=== PATIENT | male | born 1955 | race African-American/Black ===

== ENCOUNTER 2016-10-05 09:30 | Observation (INO) | payer OTHER ==
[~2016-10-05] VITALS: Ht 172.7 cm; Wt 55.8 kg
[~2016-10-05 09:30] MED LIST: ADLT ASA LOW81 MG PO; AMOXICILLIN500 MG OR; AMOXICILLIN500 MG PO; ASPIRIN EC81 MG PO; AUGMENTIN500 MG OR; AUGMENTIN500TAB PO; AUGMENTIN875 MG PO; CELEXA20 M1 PO; CIPROFLOXACN500 MG PO; KEFLEX250 MG PO; NAPROSYN500 MG PO; NITROSTAT0.4 MG SL; NO; NO MEDS; ROBITUSSIN AC10 ML OR; ROBITUSSIN AC10 ML PO; TRAMADOL HCL50 MG PO; ULTRAM50 M1 OR; ULTRAM50 M1 PO; ULTRAM50 MG OR; ZITHROMAX250 MG PO; ZOFRAN ODT4 MG PO; ZOVIRAX800 MG OR
[2016-10-05 09:58] LABS: HEMATOCRIT 41.7 % (39.0-50.0); HEMOGLOBIN 13.9 g/dl (14.0-18.0); IMMATURE GRANULOCYTES 0.2 % (0.0-1.0); MEAN CELL VOLUME 101.7 fL CALC (80.0-100.0); MEAN CORPUSCULAR HGB 33.9 pG CALC (26.0-32.0); MEAN CORPUSCULAR HGB CONC 33.3 g/L CALC (32.0-36.0); NEUT# 2.2 thou/uL (1.82-7.42); RED BLOOD COUNT 4.1 mill/uL (4.70-6.10); RED CELL DISTRI WIDTH 13.5 % (11.5-15.5)
[2016-10-05 10:14] LABS: ALBUMIN 4.6 g/dL (3.2-5.0); ALKALINE PHOSPHATASE 66 u/l (38-126); AMYLASE 119 u/l (30-110); ANION GAP 14 (6-22 (CALC)); BILIRUBIN, TOTAL 0.5 mg/dL (0.0-1.4); BUN 11 mg/dL (8-23); BUN/CREATININE RATIO 11 (12-20 (CALC)); CALCIUM 9.2 mg/dL (8.4-10.2); CARBON DIOXIDE 27 mmol/l (22-30); CHLORIDE 102 mmol/l (95-108); GFR > 60 ML/MIN (>=60 (CALC)); GFR FOR AFR.AMER. > 60 ML/MIN (>=60 (CALC)); GLUCOSE 177 mg/dL (82-115); LIPASE 141 u/l (23-300); POTASSIUM 4.2 mmol/l (3.5-5.1); SGOT/AST 37 u/l (19-48); SGPT/ALT 25 u/l (11-66); SODIUM 139 mmol/l (137-146); TOTAL PROTEIN 7.9 g/dL (6.3-8.2)
[2016-10-05 10:24] LABS: D-DIMER 0.3 mg/L (0.19-0.60); INTERNATIONAL NORMALIZED RATIO 0.9 RATIO (0.7-1.3); PROTHROMBIN TIME 10.2 SECONDS (9.0-12.5)
[2016-10-05 10:26] LABS: MYOGLOBIN 27 ng/mL (0 - 121)
[2016-10-05 11:19] LABS: URINE BILIRUBIN - DIPSTICK NEGATIVE (NEGATIVE); URINE BLOOD DIPSTICK NEGATIVE (NEGATIVE); URINE CLARITY CLEAR; URINE COLOR YELLOW; URINE GLUCOSE - DIPSTICK 100 mg/dL (NEGATIVE); URINE KETONE NEGATIVE (NEGATIVE); URINE LEUK ESTERASE NEGATIVE (NEGATIVE); URINE NITRITE - DIPSTICK NEGATIVE (Negative); URINE PH 5.5 (4.5-8.0); URINE PROTEIN - DIPSTICK NEGATIVE (NEG-TRACE); URINE UROBILINOGEN - DIPSTICK 0.2 E.U./dL (0.2)
[2016-10-05 11:23] LABS: BARBITURATES NEGATIVE (NEGATIVE); COCAINE POSITIVE (NEGATIVE); METHADONE NEGATIVE (NEGATIVE); OXCYCODONE NEGATIVE (NEGATIVE); TETRAHYDROCANNABIONOL NEGATIVE (NEGATIVE); TRICYLIC ANTIDEPRESSANTS NEGATIVE (NEGATIVE)
[2016-10-05 14:43] VITALS: BP 120/85
[2016-10-05 19:54] VITALS: BP 117/78
[2016-10-06 00:03] VITALS: BP 106/77
[2016-10-06 04:40] VITALS: BP 102/72
[2016-10-06 06:21] LABS: CHOLESTEROL HDL RATIO 1.5 (<4.4 (CALC))
[2016-10-06 07:54] VITALS: BP 108/77
[2016-10-06] MEDS ORDERED: ASPIRIN ADULT L81 M2 PO (10:49)
== END 2016-10-06 12:45 | disposition home or self-care (01) | DRG 313 ==
LOC: ENPENDDIS → ED 09:30 → ED-I 13:29 → ED 13:42 → MS2 13:43
PROVIDERS: Emergency Medicine; ADMIT Internal Medicine; ATTEND Internal Medicine
DX: R07.89 Other chest pain (principal); I10 Essential (primary) hypertension; F17.210 Nicotine dependence, cigarettes, uncomplicated; F14.10 Cocaine abuse, uncomplicated; F15.90 Other stimulant use, unspecified, uncomplicated; Z59.0 Homelessness; Z91.19 Patient's noncompliance with other medical treatment and regimen
CPT/HCPCS: G0378

== ENCOUNTER 2016-10-26 11:12 | Emergency (ER) | payer OTHER ==
[~2016-10-26] VITALS: Ht 172.7 cm; Wt 50.0 kg
[~2016-10-26 11:12] MED LIST changes: +ASPIRIN ADULT L81 M2 PO
[2016-10-26] MEDS ORDERED: TOBRAMYCIN0.3 % OU (11:29)
[2016-10-26 11:42] VITALS: BP 119/84
== END 2016-10-26 11:42 | disposition home or self-care (01) | DRG 125 ==
LOC: ED 11:12
DX: H10.9 Unspecified conjunctivitis (principal); H57.13 Ocular pain, bilateral

== ENCOUNTER 2016-11-28 15:43 | Observation (INO) | payer OTHER ==
[~2016-11-28] VITALS: Ht 172.7 cm; Wt 57.2 kg
[~2016-11-28 15:43] MED LIST changes: +TOBRAMYCIN0.3 % OU
--- NOTE | 2016-11-28 15:55 | NUR ---
PATIENT TO ROOM VIA WHEELCHAIR
[2016-11-28 16:18] LABS: HEMATOCRIT 39.7 % (39.0-50.0); HEMOGLOBIN 13.4 g/dl (14.0-18.0); IMMATURE GRANULOCYTES 0.2 % (0.0-1.0); MEAN CELL VOLUME 100.5 fL CALC (80.0-100.0); MEAN CORPUSCULAR HGB 33.9 pG CALC (26.0-32.0); MEAN CORPUSCULAR HGB CONC 33.8 g/L CALC (32.0-36.0); NEUT# 3.8 thou/uL (1.82-7.42); RED BLOOD COUNT 3.95 mill/uL (4.70-6.10); RED CELL DISTRI WIDTH 14.3 % (11.5-15.5)
[2016-11-28 16:30] LABS: ALBUMIN 4.8 g/dL (3.2-5.0); ALKALINE PHOSPHATASE 66 u/l (38-126); AMYLASE 124 u/l (30-110); ANION GAP 18 (6-22 (CALC)); BILIRUBIN, TOTAL 0.2 mg/dL (0.0-1.4); BUN 11 mg/dL (8-23); BUN/CREATININE RATIO 11 (12-20 (CALC)); CALCIUM 9.4 mg/dL (8.4-10.2); CARBON DIOXIDE 22 mmol/l (22-30); CHLORIDE 105 mmol/l (95-108); GFR > 60 ML/MIN (>=60 (CALC)); GFR FOR AFR.AMER. > 60 ML/MIN (>=60 (CALC)); GLUCOSE 80 mg/dL (82-115); LIPASE 130 u/l (23-300); POTASSIUM 4.1 mmol/l (3.5-5.1); SGOT/AST 49 u/l (19-48); SGPT/ALT 43 u/l (11-66); SODIUM 142 mmol/l (137-146); TOTAL PROTEIN 7.9 g/dL (6.3-8.2)
[2016-11-28 16:42] LABS: MYOGLOBIN 38 ng/mL (0 - 121)
--- NOTE | 2016-11-28 16:49 | NUR ---
PT RESTS IN THE STRETCHER, NO COMPLAINTS AT THIS TIME. IV ESTABLISHED WITH BLOOD DRAW.
[2016-11-28 18:50] LABS: URINE BILIRUBIN - DIPSTICK NEGATIVE (NEGATIVE); URINE BLOOD DIPSTICK NEGATIVE (NEGATIVE); URINE CLARITY CLEAR; URINE COLOR YELLOW; URINE GLUCOSE - DIPSTICK NEGATIVE (NEGATIVE); URINE KETONE NEGATIVE (NEGATIVE); URINE LEUK ESTERASE NEGATIVE (NEGATIVE); URINE NITRITE - DIPSTICK NEGATIVE (Negative); URINE PH 5.5 (4.5-8.0); URINE PROTEIN - DIPSTICK NEGATIVE (NEG-TRACE); URINE SPECIFIC GRAVITY 1.015; URINE UROBILINOGEN - DIPSTICK 0.2 E.U./dL (0.2)
[2016-11-28 18:53] LABS: COCAINE POSITIVE (NEGATIVE); METHADONE NEGATIVE (NEGATIVE); TETRAHYDROCANNABIONOL NEGATIVE (NEGATIVE); TRICYLIC ANTIDEPRESSANTS NEGATIVE (NEGATIVE)
[2016-11-28 18:54] LABS: BARBITURATES NEGATIVE (NEGATIVE); OXCYCODONE NEGATIVE (NEGATIVE)
--- NOTE | 2016-11-28 19:07 | NUR ---
FLOOR CALLED FOR REPORT, UNABLE TO RECEIVE AT THIS TIME, WILL RETURN CALL.
--- NOTE | 2016-11-28 19:30 | NUR ---
REPORT CALLED TO ROCAEL RASHEED
[2016-11-28 19:35] VITALS: BP 134/87
--- NOTE | 2016-11-28 19:35 | NUR ---
PT TO RM 283 WITH RN AND TELE.
--- NOTE | 2016-11-28 19:35 | NUR ---
PT TRANSFERRED TO FLOOR VIA STRETCHER IN STABLE CONDITION ACCOMPANIED BY ARLYNRN;PT AMBULATED WITH STEADY GAIT TO BEDSIDE;VS OBTAINED;PT ORIENTED TO ROOM AND CALL LIGHT SYSTEM AND VERBALIZES UNDERSTANDING;ASSESSMENT COMPLETED;IV SITE TO RAC INFUSING WELL;TELE MONITOR IN PLACE;SKIN INTACT;PT COMPLAINS OF HEADACHE PAIN AND REQUESTS PRN PAIN MEDICATION;MD TO BE CALL FOR ORDER;PT DENIES ANY OTHER NEEDS AT THIS TIME;BED IN LOWEST POSITION WITH CALL LIGHT IN REACH;WILL CONTINUE TO MONITOR
--- NOTE | 2016-11-28 20:13 | NUR ---
NEW ORDERS RECEIVED FROM AT THIS TIME
--- NOTE | 2016-11-28 20:50 | NUR ---
PT MEDICATED WITH PRN TYLENOL FOR HEADACHE PAIN 8/10 ON THE PAIN SCALE;PT DENIES ANY OTHER NEEDS AT THIS TIME;BED IN LOWEST POSITION WITH CALL LIGHT IN REACH;WILL CONTINUE TO MONITOR
[2016-11-28 23:42] VITALS: BP 142/58
--- NOTE | 2016-11-28 23:47 | NUR ---
PT APPEARS TO BE SLEEPING IN SEMI FOWLERS POSITION;NO S/S OF DISTRESS NOTED;RESPIRATIONS EVEN AND UNLABORED ON RA;TELE MONITOR IN PLACE;IV FLUIDS INFUSING WELL;BED IN LOWEST POSITION WITH CALL LIGHT IN REACH;WILL CONTINUE TO MONITOR
[2016-11-29 03:28] VITALS: BP 111/74
--- NOTE | 2016-11-29 05:38 | NUR ---
PT RESTING IN SEMI FOWLERS POSITION;PT DENIES ANY PAIN OR NAUSEA;RESPIRATIONS EVEN AND UNLABORED ON RA;TELE MONITOR IN PLACE;PT DENIES ANY NEEDS AT THIS TIME;CALL LIGHT WITHIN REACH;WILL CONTINUE TO MONITOR
[2016-11-29 06:24] LABS: HEMATOCRIT 39.9 % (39.0-50.0); HEMOGLOBIN 13.3 g/dl (14.0-18.0); IMMATURE GRANULOCYTES 0.8 % (0.0-1.0); MEAN CELL VOLUME 101.3 fL CALC (80.0-100.0); MEAN CORPUSCULAR HGB 33.8 pG CALC (26.0-32.0); MEAN CORPUSCULAR HGB CONC 33.3 g/L CALC (32.0-36.0); NEUT# 2.07 thou/uL (1.82-7.42); RED BLOOD COUNT 3.94 mill/uL (4.70-6.10); RED CELL DISTRI WIDTH 14.3 % (11.5-15.5)
[2016-11-29 06:42] LABS: ANION GAP 12 (6-22 (CALC)); BUN 8 mg/dL (8-23); BUN/CREATININE RATIO 9 (12-20 (CALC)); CALCIUM 9.2 mg/dL (8.4-10.2); CARBON DIOXIDE 26 mmol/l (22-30); CHLORIDE 106 mmol/l (95-108); GFR > 60 ML/MIN (>=60 (CALC)); GFR FOR AFR.AMER. > 60 ML/MIN (>=60 (CALC)); GLUCOSE 101 mg/dL (82-115); POTASSIUM 4.4 mmol/l (3.5-5.1); SODIUM 140 mmol/l (137-146)
[2016-11-29 06:51] LABS: CHOLESTEROL HDL RATIO 1.4 (<4.4 (CALC))
--- NOTE | 2016-11-29 07:00 | NUR ---
SHIFT CHANGE REPORT FROM NANCY COTE AWAKE, ALERT AND ORIENTED LAYING IN BED, APPEARANCE DISHEVELLED AND DIRTY WITH DIRT SEDIMENTS ALL OVER BED, C/O PAIN TO LEFT SIDE, CALL MARI IN REACH, WILL CONTINUE TO MONITOR.
[2016-11-29 07:33] VITALS: BP 109/75
[2016-11-29 09:15] VITALS: BP 109/75
[2016-11-29] MEDS ORDERED: ASPIRIN ADULT L81 M2 PO (09:55)
[2016-11-29] MEDS ORDERED: PEPCID20 MG PO (09:55)
[2016-11-29] MEDS ORDERED: IBUPROFEN600 MG PO (09:55)
--- NOTE | 2016-11-29 11:12 | NUR ---
Discharge instructions given. Patient verbalizes understanding of same. Discharged in good condition via Ambulatory to Home with *Other. All belongings sent with pt.
== END 2016-11-29 11:05 | disposition home or self-care (01) | DRG 313 ==
LOC: ENPENDDIS → ED 15:43 → ED-I 16:06 → ED 18:00 → MS2 18:01
PROVIDERS: Emergency Medicine; ADMIT Internal Medicine; ATTEND Internal Medicine
DX: R07.89 Other chest pain (principal); F14.10 Cocaine abuse, uncomplicated; F17.210 Nicotine dependence, cigarettes, uncomplicated; Z91.14 Patient's other noncompliance with medication regimen; Z59.0 Homelessness
CPT/HCPCS: G0378

== ENCOUNTER 2017-01-11 13:23 | Emergency (ER) | payer OTHER ==
[~2017-01-11] VITALS: Ht 172.7 cm; Wt 57.4 kg
[~2017-01-11 13:23] MED LIST changes: +IBUPROFEN600 MG PO; +PEPCID20 MG PO
[2017-01-11 14:37] LABS: URINE BILIRUBIN - DIPSTICK NEGATIVE (NEGATIVE); URINE BLOOD DIPSTICK NEGATIVE (NEGATIVE); URINE CLARITY CLEAR; URINE COLOR YELLOW; URINE GLUCOSE - DIPSTICK NEGATIVE (NEGATIVE); URINE KETONE NEGATIVE (NEGATIVE); URINE LEUK ESTERASE NEGATIVE (NEGATIVE); URINE NITRITE - DIPSTICK NEGATIVE (Negative); URINE PH 5.5 (4.5-8.0); URINE PROTEIN - DIPSTICK NEGATIVE (NEG-TRACE); URINE UROBILINOGEN - DIPSTICK 0.2 E.U./dL (0.2)
[2017-01-11 14:43] LABS: HEMATOCRIT 39.9 % (39.0-50.0); HEMOGLOBIN 13.6 g/dl (14.0-18.0); IMMATURE GRANULOCYTES 0.5 % (0.0-1.0); MEAN CORPUSCULAR HGB 34.1 pG CALC (26.0-32.0); MEAN CORPUSCULAR HGB CONC 34.1 g/L CALC (32.0-36.0); NEUT# 1.67 thou/uL (1.82-7.42); RED BLOOD COUNT 3.99 mill/uL (4.70-6.10); RED CELL DISTRI WIDTH 13.4 % (11.5-15.5)
[2017-01-11 14:58] LABS: ALBUMIN 4.5 g/dL (3.2-5.0); ALKALINE PHOSPHATASE 59 u/l (38-126); AMYLASE 141 u/l (30-110); ANION GAP 19 (6-22 (CALC)); BILIRUBIN, TOTAL 0.3 mg/dL (0.0-1.4); BUN 15 mg/dL (8-23); BUN/CREATININE RATIO 13 (12-20 (CALC)); CALCIUM 9.3 mg/dL (8.4-10.2); CARBON DIOXIDE 20 mmol/l (22-30); CHLORIDE 105 mmol/l (95-108); CREATININE 1.2 mg/dL (0.7-1.3); GFR > 60 ML/MIN (>=60 (CALC)); GFR FOR AFR.AMER. > 60 ML/MIN (>=60 (CALC)); GLUCOSE 81 mg/dL (82-115); LIPASE 147 u/l (23-300); POTASSIUM 4.2 mmol/l (3.5-5.1); SGOT/AST 45 u/l (19-48); SGPT/ALT 51 u/l (11-66); SODIUM 140 mmol/l (137-146); TOTAL PROTEIN 7.5 g/dL (6.3-8.2)
[2017-01-11 15:06] LABS: MYOGLOBIN 40 ng/mL (0 - 121)
[2017-01-11] MEDS ORDERED: COLACE100 MG PO (15:49)
[2017-01-11] MEDS ORDERED: CIPROFLOXACN750 MG PO (15:49)
[2017-01-11 16:16] VITALS: BP 100/73
== END 2017-01-11 16:30 | disposition home or self-care (01) | DRG 392 ==
LOC: ED 13:23
PROVIDERS: Emergency Medicine
DX: R10.32 Left lower quadrant pain (principal); K59.00 Constipation, unspecified; R10.12 Left upper quadrant pain; R10.2 Pelvic and perineal pain

== ENCOUNTER 2017-03-16 11:01 | Emergency (ER) | payer OTHER ==
[~2017-03-16] VITALS: Ht 172.7 cm; Wt 80.0 kg
[~2017-03-16 11:01] MED LIST changes: +CIPROFLOXACN750 MG PO; +COLACE100 MG PO
[2017-03-16] MEDS ORDERED: CEPHALEXIN500 MG PO (12:40)
[2017-03-16] MEDS ORDERED: ROBITUSSIN AC10 ML PO (12:40)
[2017-03-16 12:48] VITALS: BP 133/88
== END 2017-03-16 12:56 | disposition home or self-care (01) | DRG 153 ==
LOC: ED 11:01
DX: J06.9 Acute upper respiratory infection, unspecified (principal); F17.210 Nicotine dependence, cigarettes, uncomplicated; R05 Cough; J02.9 Acute pharyngitis, unspecified; R07.9 Chest pain, unspecified

== ENCOUNTER 2017-06-12 08:40 | Emergency (ER) | payer OTHER ==
[~2017-06-12] VITALS: Ht 172.7 cm; Wt 50.0 kg
[~2017-06-12 08:40] MED LIST changes: +CEPHALEXIN500 MG PO
[2017-06-12 09:56] LABS: HEMATOCRIT 41.7 % (39.0-50.0); HEMOGLOBIN 14.4 g/dl (14.0-18.0); IMMATURE GRANULOCYTES 0.2 % (0.0-1.0); MEAN CELL VOLUME 99.5 fL CALC (80.0-100.0); MEAN CORPUSCULAR HGB 34.4 pG CALC (26.0-32.0); MEAN CORPUSCULAR HGB CONC 34.5 g/L CALC (32.0-36.0); NEUT# 2.38 thou/uL (1.82-7.42); RED BLOOD COUNT 4.19 mill/uL (4.70-6.10); RED CELL DISTRI WIDTH 13.2 % (11.5-15.5)
[2017-06-12 10:05] LABS: LIPASE 267 u/l (23-300)
[2017-06-12 10:36] LABS: INFLUENZA A NONE DETECTED (NONE DETECT); INFLUENZA B NONE DETECTED (NONE DETECT)
[2017-06-12 10:42] LABS: ALBUMIN 4.4 g/dL (3.2-5.0); ALKALINE PHOSPHATASE 71 u/l (38-126); ANION GAP 15 (6-22 (CALC)); BILIRUBIN, TOTAL 1.1 mg/dL (0.0-1.4); BUN 8 mg/dL (8-23); BUN/CREATININE RATIO 8 (12-20 (CALC)); CALCIUM 9.3 mg/dL (8.4-10.2); CARBON DIOXIDE 24 mmol/l (22-30); CHLORIDE 107 mmol/l (95-108); GFR > 60 ML/MIN (>=60 (CALC)); GFR FOR AFR.AMER. > 60 ML/MIN (>=60 (CALC)); GLUCOSE 91 mg/dL (82-115); POTASSIUM 5.1 mmol/l (3.5-5.1); SGOT/AST 52 u/l (19-48); SGPT/ALT 17 u/l (11-66); SODIUM 140 mmol/l (137-146); TOTAL PROTEIN 7.6 g/dL (6.3-8.2)
[2017-06-12] MEDS ORDERED: PROVENTIL HFA IN (11:28)
[2017-06-12] MEDS ORDERED: ZPAK PO (11:28)
[2017-06-12 11:59] VITALS: BP 116/82
== END 2017-06-12 12:06 | disposition home or self-care (01) | DRG 203 ==
LOC: ED 08:40
PROVIDERS: Emergency Medicine
DX: J40 Bronchitis, not specified as acute or chronic (principal); M79.1 Myalgia; R05 Cough; Z72.0 Tobacco use

== ENCOUNTER 2017-08-28 06:04 | Day surgery (SDC) | payer OTHER ==
[~2017-08-28] VITALS: Ht 172.7 cm; Wt 57.2 kg
[~2017-08-28 06:04] MED LIST changes: +OMEPRAZOLE20 M2 PO; +PROVENTIL HFA IN; +ZPAK PO
[2017-08-28 08:31] VITALS: BP 105/72
== END 2017-08-28 08:42 | disposition home or self-care (01) | DRG 951 ==
LOC: ENDO 06:04
PROVIDERS: ATTEND Surgery
PROC: 0DJD8ZZ Inspection of Lower Intestinal Tract, Via Natural or Artificial Opening Endoscopic (ICD-10-PCS; principal; 2017-08-28)
DX: Z12.11 Encounter for screening for malignant neoplasm of colon (principal); K64.8 Other hemorrhoids

== ENCOUNTER 2017-09-20 19:04 | Emergency (ER) | payer OTHER ==
[~2017-09-20] VITALS: Ht 172.7 cm; Wt 57.6 kg
[2017-09-20 19:44] LABS: HEMOGLOBIN 13.6 g/dl (14.0-18.0); MEAN CORPUSCULAR HGB 33.8 pG CALC (26.0-32.0); MEAN CORPUSCULAR HGB CONC 33.2 g/L CALC (32.0-36.0); NEUT# 2.88 thou/uL (1.82-7.42); RED BLOOD COUNT 4.02 mill/uL (4.70-6.10); RED CELL DISTRI WIDTH 13.4 % (11.5-15.5)
[2017-09-20 19:47] LABS: URINE BILIRUBIN - DIPSTICK NEGATIVE (NEGATIVE); URINE BLOOD DIPSTICK NEGATIVE (NEGATIVE); URINE COLOR YELLOW; URINE GLUCOSE - DIPSTICK NEGATIVE (NEGATIVE); URINE KETONE NEGATIVE (NEGATIVE); URINE LEUK ESTERASE NEGATIVE (NEGATIVE); URINE NITRITE - DIPSTICK NEGATIVE (Negative); URINE PROTEIN - DIPSTICK NEGATIVE (NEG-TRACE); URINE SPECIFIC GRAVITY 1.025; URINE UROBILINOGEN - DIPSTICK 0.2 E.U./dL (0.2)
[2017-09-20 19:50] LABS: URINE CLARITY CLEAR
[2017-09-20 20:02] LABS: ALBUMIN 4.4 g/dL (3.2-5.0); ALKALINE PHOSPHATASE 72 u/l (38-126); ANION GAP 21 (6-22 (CALC)); BILIRUBIN, TOTAL 0.2 mg/dL (0.0-1.4); BUN 15 mg/dL (8-23); BUN/CREATININE RATIO 15 (12-20 (CALC)); CARBON DIOXIDE 19 mmol/l (22-30); CHLORIDE 104 mmol/l (95-108); GFR > 60 ML/MIN (>=60 (CALC)); GFR FOR AFR.AMER. > 60 ML/MIN (>=60 (CALC)); POTASSIUM 4.5 mmol/l (3.5-5.1); SGOT/AST 35 u/l (19-48); SGPT/ALT 29 u/l (11-66); SODIUM 140 mmol/l (137-146); TOTAL PROTEIN 7.5 g/dL (6.3-8.2)
[2017-09-20] MEDS ORDERED: TORADOL PO (20:33)
[2017-09-20] MEDS ORDERED: BACTRIM DS1 TAB PO (20:33)
[2017-09-20 21:21] VITALS: BP 136/98
== END 2017-09-20 21:21 | disposition home or self-care (01) | DRG 563 ==
LOC: ED 19:04
PROVIDERS: Emergency Medicine
DX: S39.011A Strain of muscle, fascia and tendon of abdomen, initial encounter (principal); F17.210 Nicotine dependence, cigarettes, uncomplicated; Z59.0 Homelessness; X58.XXXA Exposure to other specified factors, initial encounter

== ENCOUNTER 2017-10-15 21:03 | Observation (INO) | payer OTHER ==
[~2017-10-15] VITALS: Ht 172.7 cm; Wt 55.0 kg
[~2017-10-15 21:03] MED LIST changes: +BACTRIM DS1 TAB PO; +TORADOL PO
--- NOTE | 2017-10-15 21:31 | NUR ---
PT TO ROOM AND DR AT BEDSIDE
--- NOTE | 2017-10-15 21:45 | NUR ---
PT REPORTS SORE THROAT, VOMITING, AND ABD PAIN SINCE YESTERDAY. HAS HX OF INGUINAL HERNIA. PT IS A POOR HISTORIAN AND SAYS DIFFERENT THINGS THEN DENIES SYMPTOMS WHEN ASKED AGAIN.
--- NOTE | 2017-10-15 22:09 | NUR ---
PT MEDICATED WITH ASA 324 MG PO AND NTG PASTE PER EDP ORDER.
--- NOTE | 2017-10-15 22:11 | NUR ---
IV ATTEMPTS X 2 BY TRANSMISSION SPECIALIST. EDITH AND SANJU METCALF INFORMED. IN ROOM TO ATTEMPT IV ACCESS.
--- NOTE | 2017-10-15 22:15 | NUR ---
REPROT GIVEN TO SANJU METCALF/
[2017-10-15 22:31] LABS: URINE BILIRUBIN - DIPSTICK NEGATIVE (NEGATIVE); URINE BLOOD DIPSTICK NEGATIVE (NEGATIVE); URINE COLOR YELLOW; URINE GLUCOSE - DIPSTICK NEGATIVE (NEGATIVE); URINE KETONE NEGATIVE (NEGATIVE); URINE LEUK ESTERASE NEGATIVE (NEGATIVE); URINE NITRITE - DIPSTICK NEGATIVE (Negative); URINE PH 6.5 (4.5-8.0); URINE PROTEIN - DIPSTICK NEGATIVE (NEG-TRACE); URINE SPECIFIC GRAVITY <=1.005; URINE UROBILINOGEN - DIPSTICK 0.2 E.U./dL (0.2)
[2017-10-15 22:35] LABS: URINE CLARITY CLEAR
[2017-10-15 22:36] LABS: BARBITURATES NEGATIVE (NEGATIVE); COCAINE POSITIVE (NEGATIVE); METHADONE NEGATIVE (NEGATIVE); OXCYCODONE NEGATIVE (NEGATIVE); TETRAHYDROCANNABIONOL NEGATIVE (NEGATIVE); TRICYLIC ANTIDEPRESSANTS NEGATIVE (NEGATIVE)
[2017-10-15 22:40] LABS: INFLUENZA A NONE DETECTED (NONE DETECT)
[2017-10-15 22:41] LABS: INFLUENZA B NONE DETECTED (NONE DETECT)
[2017-10-15 22:44] LABS: HEMATOCRIT 41.6 % (39.0-50.0); IMMATURE GRANULOCYTES 0.2 % (0.0-1.0); MEAN CORPUSCULAR HGB CONC 33.7 g/L CALC (32.0-36.0); NEUT# 2.45 thou/uL (1.82-7.42); RED BLOOD COUNT 4.12 mill/uL (4.70-6.10); RED CELL DISTRI WIDTH 13.3 % (11.5-15.5)
--- NOTE | 2017-10-15 23:01 | NUR ---
RESTING QUIETLY. AWAITING DISPOSITION.
[2017-10-15 23:10] LABS: ACT PARTIAL THROMBO TIME 27.8 SECONDS (20.0-32.5)
[2017-10-15 23:15] LABS: ALBUMIN 4.3 g/dL (3.2-5.0); ALKALINE PHOSPHATASE 68 u/l (38-126); AMYLASE 106 u/l (30-110); ANION GAP 21 (6-22 (CALC)); BILIRUBIN, TOTAL 0.3 mg/dL (0.0-1.4); BUN 10 mg/dL (8-23); BUN/CREATININE RATIO 12 (12-20 (CALC)); CARBON DIOXIDE 22 mmol/l (22-30); CHLORIDE 100 mmol/l (95-108); CREATININE 0.9 mg/dL (0.7-1.3); ETHYL ALCOHOL 152 mg/dl (0-30); GFR > 60 ML/MIN (>=60 (CALC)); GFR FOR AFR.AMER. > 60 ML/MIN (>=60 (CALC)); LIPASE 126 u/l (23-300); POTASSIUM 4.3 mmol/l (3.5-5.1); SGOT/AST 38 u/l (19-48); SGPT/ALT 33 u/l (11-66); SODIUM 140 mmol/l (137-146); TOTAL PROTEIN 7.4 g/dL (6.3-8.2)
[2017-10-15 23:26] LABS: MYOGLOBIN 46 ng/mL (0 - 121)
--- NOTE | 2017-10-16 00:54 | NUR ---
RESTING QUIETLY, NO PROBLEMS NOTED.
--- NOTE | 2017-10-16 01:47 | NUR ---
AWAITING BED ASSIGNMENT.
--- NOTE | 2017-10-16 01:58 | NUR ---
Admission Note Report Given to: SANJU HASTINGS Transported by: X Wheelchair Stretcher Transported with: X Nurse Transporter X Patent IV O2 X Alarm Mechanism Adjuster
[2017-10-16 02:30] VITALS: BP 105/68
--- NOTE | 2017-10-16 02:30 | NUR ---
PT ARRIVED TO THE FLOOR VIA WHEELCHAIER WITH ER NURSE. PT AMBULATED TO SCALE, THEN TO BED. VITAL SIGNS OBTAINED BY CONSUMER ADVOCATE. PT ORIENTED TO ROOM AND CALL LIGHT SYSTEM. RESP EVEN AND UNLABORED ON ROOM AIR. LUNGS CLEAR BILAT. TELE ON. ABD SOFT; ACTIVE BOWEL SOUNDS. PT REPORTS LAST BM WAS YESTERDAY. PEDAL PULSES PALPATED BILAT. IV RAC PATENT; FLUSHED WITHOUT DIFFICULTY. PT DENIES PAIN. SAFETY PRECAUTIONS REINFORCED. PT ASKED ADMIT QUESTIONS; PT IS A POOR HISTORIAN. PT DENIES ALL PMH OTHER THAN SEIZURES. PT REPORTS " I HAD THEM WHEN I WAS A KID." WHEN PT WAS ASKED IF HE HAS HAD A SEIZURE SINCE THEN, PT HAD STATED "I HAD ONE 5 YEARS AGO". SEIZURE PRECAUTIONS IN PLACE. FREQUENT ROUNDS MADE. CALL LIGHT WITHIN REACH.
--- NOTE | 2017-10-16 04:11 | NUR ---
PT RESTING IN BED. RESP EVEN AND UNLABORED. PT DENIES ANY OTHER NEEDS AT THIS TIME. TELE ON. CALL LIGHT WITHIN REACH.
[2017-10-16 04:30] VITALS: BP 100/70
--- NOTE | 2017-10-16 07:00 | NUR ---
RECEIVED BEDSIDE REPORT FROM SHARMILA RASHEED. RESTING IN SUPINE POSITION WITH EYES CLOSED, AWAKENS EASILY. RESPS EVEN AND UNLABORED ON ROOM AIR, TELE MONITOR IN PLACE. DENIES PAIN OR DISCOMFORT. PLAN OF CARE DISCUSSED. SAFETY PRECAUTIONS REINFORCED. SEIZURE PRECAUTIONS IN PLACE. BED IN LOWEST POSITION WITH WHEELS LOCKED. CALL LIGHT WITHIN REACH. ENCOURAGED PT TO CALL FOR ANY NEEDS.
[2017-10-16 07:41] VITALS: BP 114/75
[2017-10-16 11:22] VITALS: BP 117/74
--- NOTE | 2017-10-16 11:40 | NUR ---
IN HIGH FOWLERS, RESPS EVEN AND UNLABORED ON ROOM AIR, TELE MONTIOR IN PLACE. MEDICATED WITH GI COCKTAIL FOR C/O EPIGASTRIC DISCOMFORT. CALL LIGHT WITHIN REACH. WILL CONTINUE TO MONITOR.
[2017-10-16 12:04] LABS: CHOLESTEROL HDL RATIO 1.6 (<4.4 (CALC))
--- NOTE | 2017-10-16 12:20 | NUR ---
DR TAFOYA AT BEDSIDE, NEW ORDERS RECEIVED.
[2017-10-16] MEDS ORDERED: ASPIRIN ADULT L81 M2 PO (12:55)
[2017-10-16] MEDS ORDERED: AMOXICILLIN500 M2 PO (12:55)
--- NOTE | 2017-10-16 13:52 | NUR ---
IV site discontinued, cath intact. No edema , no redness, voices no discomfort.
--- NOTE | 2017-10-16 14:27 | NUR ---
Discharge instructions given. Patient verbalizes understanding of same. Discharged in stable condition via Wheelchair to Home with friend. All belongings sent with pt.
== END 2017-10-16 15:05 | disposition home or self-care (01) | DRG 313 ==
LOC: ED 21:03 → ED-I 10-16 01:29 → ED 10-16 01:49 → MS2 10-16 01:50
PROVIDERS: Emergency Medicine; Nurse Practitioner Family; ADMIT Internal Medicine; ATTEND Internal Medicine
DX: R07.89 Other chest pain (principal); J02.0 Streptococcal pharyngitis; F10.129 Alcohol abuse with intoxication, unspecified; F14.10 Cocaine abuse, uncomplicated; F17.210 Nicotine dependence, cigarettes, uncomplicated; Y90.6 Blood alcohol level of 120-199 mg/100 ml; F12.90 Cannabis use, unspecified, uncomplicated; Z59.0 Homelessness
CPT/HCPCS: G0378; S0164

== ENCOUNTER 2017-11-13 13:33 | Emergency (ER) | payer OTHER ==
[~2017-11-13] VITALS: Ht 172.7 cm; Wt 55.0 kg
[~2017-11-13 13:33] MED LIST changes: +AMOXICILLIN500 M2 PO
[2017-11-13 14:33] LABS: HEMATOCRIT 37.8 % (39.0-50.0); HEMOGLOBIN 12.8 g/dl (14.0-18.0); IMMATURE GRANULOCYTES 0.2 % (0.0-1.0); MEAN CELL VOLUME 102.4 fL CALC (80.0-100.0); MEAN CORPUSCULAR HGB 34.7 pG CALC (26.0-32.0); MEAN CORPUSCULAR HGB CONC 33.9 g/L CALC (32.0-36.0); NEUT# 2.67 thou/uL (1.82-7.42); RED BLOOD COUNT 3.69 mill/uL (4.70-6.10); RED CELL DISTRI WIDTH 14.4 % (11.5-15.5)
[2017-11-13 14:44] LABS: ALBUMIN 4.3 g/dL (3.2-5.0); ALKALINE PHOSPHATASE 72 u/l (38-126); ANION GAP 15 (6-22 (CALC)); BILIRUBIN, TOTAL 0.3 mg/dL (0.0-1.4); BUN 12 mg/dL (8-23); BUN/CREATININE RATIO 12 (12-20 (CALC)); CARBON DIOXIDE 23 mmol/l (22-30); CHLORIDE 103 mmol/l (95-108); GFR > 60 ML/MIN (>=60 (CALC)); GFR FOR AFR.AMER. > 60 ML/MIN (>=60 (CALC)); LIPASE 138 u/l (23-300); SGOT/AST 40 u/l (19-48); SGPT/ALT 40 u/l (11-66); SODIUM 137 mmol/l (137-146); TOTAL PROTEIN 7.3 g/dL (6.3-8.2)
[2017-11-13 15:25] LABS: BARBITURATES NEGATIVE (NEGATIVE); COCAINE POSITIVE (NEGATIVE); METHADONE NEGATIVE (NEGATIVE); OXCYCODONE NEGATIVE (NEGATIVE); TETRAHYDROCANNABIONOL NEGATIVE (NEGATIVE); TRICYLIC ANTIDEPRESSANTS NEGATIVE (NEGATIVE)
[2017-11-13 16:24] VITALS: BP 148/97
== END 2017-11-13 16:27 | disposition home or self-care (01) | DRG 313 ==
LOC: ED 13:33
PROVIDERS: Emergency Medicine
DX: R07.89 Other chest pain (principal); R06.02 Shortness of breath; F14.10 Cocaine abuse, uncomplicated; F17.210 Nicotine dependence, cigarettes, uncomplicated

== ENCOUNTER 2018-03-12 19:08 | Emergency (ER) | payer OTHER ==
[~2018-03-12] VITALS: Ht 172.7 cm; Wt 54.5 kg
[2018-03-12 19:49] LABS: IMMATURE GRANULOCYTES 0.2 % (0.0-5.0); MEAN CELL VOLUME 99.5 fL CALC (80.0-100.0); MEAN CORPUSCULAR HGB CONC 34.2 g/L CALC (32.0-36.0); NEUT# 1.99 thou/uL (1.82-7.42); RED BLOOD COUNT 3.82 mill/uL (4.70-6.10); RED CELL DISTRI WIDTH 13.5 % (11.5-15.5); URINE BILIRUBIN - DIPSTICK NEGATIVE (NEGATIVE); URINE BLOOD DIPSTICK NEGATIVE (NEGATIVE); URINE COLOR YELLOW; URINE GLUCOSE - DIPSTICK NEGATIVE (NEGATIVE); URINE KETONE NEGATIVE (NEGATIVE); URINE LEUK ESTERASE NEGATIVE (NEGATIVE); URINE NITRITE - DIPSTICK NEGATIVE (Negative); URINE PH 5.5 (4.5-8.0); URINE PROTEIN - DIPSTICK NEGATIVE (NEG-TRACE); URINE UROBILINOGEN - DIPSTICK 0.2 E.U./dL (0.2)
[2018-03-12 19:52] LABS: URINE CLARITY CLEAR
[2018-03-12 20:06] LABS: ALBUMIN 4.2 g/dL (3.2-5.0); ALKALINE PHOSPHATASE 56 u/l (38-126); ANION GAP 18 (6-22 (CALC)); BILIRUBIN, TOTAL 0.3 mg/dL (0.0-1.4); BUN 18 mg/dL (8-23); BUN/CREATININE RATIO 16 (12-20 (CALC)); CARBON DIOXIDE 20 mmol/l (22-30); CHLORIDE 102 mmol/l (95-108); CREATININE 1.1 mg/dL (0.7-1.3); GFR > 60 ML/MIN (>=60 (CALC)); GFR FOR AFR.AMER. > 60 ML/MIN (>=60 (CALC)); POTASSIUM 4.4 mmol/l (3.5-5.1); SGOT/AST 62 u/l (19-48); SODIUM 136 mmol/l (137-146); TOTAL PROTEIN 7.1 g/dL (6.3-8.2)
[2018-03-12 20:07] LABS: INFLUENZA A NONE DETECTED (NONE DETECT); INFLUENZA B NONE DETECTED (NONE DETECT)
[2018-03-12 20:18] LABS: MYOGLOBIN 42 ng/mL (0 - 121)
[2018-03-12 20:49] LABS: BARBITURATES NEGATIVE (NEGATIVE); COCAINE POSITIVE (NEGATIVE); METHADONE NEGATIVE (NEGATIVE); TETRAHYDROCANNABIONOL NEGATIVE (NEGATIVE); TRICYLIC ANTIDEPRESSANTS NEGATIVE (NEGATIVE)
[2018-03-12 20:50] LABS: OXCYCODONE NEGATIVE (NEGATIVE)
[2018-03-12] MEDS ORDERED: NAPROSYN500 MG PO (20:56)
[2018-03-12 21:27] VITALS: BP 144/97
== END 2018-03-12 21:25 | disposition home or self-care (01) ==
LOC: ED 19:08
PROVIDERS: Emergency Medicine
DX: F10.10 Alcohol abuse, uncomplicated (principal); F19.10 Other psychoactive substance abuse, uncomplicated; R52 Pain, unspecified; R07.9 Chest pain, unspecified; R05 Cough; J02.9 Acute pharyngitis, unspecified; G40.909 Epilepsy, unspecified, not intractable, without status epilepticus

== ENCOUNTER 2018-07-04 15:28 | Emergency (ER) | payer OTHER ==
[~2018-07-04] VITALS: Ht 172.7 cm; Wt 56.0 kg
[2018-07-04 17:10] LABS: URINE BILIRUBIN - DIPSTICK NEGATIVE (NEGATIVE); URINE BLOOD DIPSTICK NEGATIVE (NEGATIVE); URINE COLOR YELLOW; URINE GLUCOSE - DIPSTICK NEGATIVE (NEGATIVE); URINE KETONE NEGATIVE (NEGATIVE); URINE PROTEIN - DIPSTICK NEGATIVE (NEG-TRACE); URINE UROBILINOGEN - DIPSTICK 0.2 E.U./dL (0.2)
[2018-07-04 17:11] LABS: URINE LEUK ESTERASE SMALL (NEGATIVE); URINE NITRITE - DIPSTICK POSITIVE (Negative)
[2018-07-04 17:15] LABS: HEMATOCRIT 39.8 % (39.0-50.0); HEMOGLOBIN 13.1 g/dl (14.0-18.0); IMMATURE GRANULOCYTES 0.3 % (0.0-5.0); MEAN CELL VOLUME 103.1 fL CALC (80.0-100.0); MEAN CORPUSCULAR HGB 33.9 pG CALC (26.0-32.0); MEAN CORPUSCULAR HGB CONC 32.9 g/L CALC (32.0-36.0); NEUT# 6.89 thou/uL (1.82-7.42); RED BLOOD COUNT 3.86 mill/uL (4.70-6.10); RED CELL DISTRI WIDTH 13.5 % (11.5-15.5)
[2018-07-04 17:21] LABS: URINE BACTERIA MANY hpf; URINE RBC 0-2 RBC/hpf (0-5); URINE SQUAMOUS EPITHELIAL CELL RARE EPI/hpf (0-FEW); URINE WBC 20-50 WBC/hpf (0-5)
[2018-07-04 17:38] LABS: ALBUMIN 4.5 g/dL (3.2-5.0); ALKALINE PHOSPHATASE 74 u/l (38-126); ANION GAP 15 (6-22 (CALC)); BILIRUBIN, TOTAL 0.4 mg/dL (0.0-1.4); BUN 12 mg/dL (8-23); BUN/CREATININE RATIO 13 (12-20 (CALC)); CARBON DIOXIDE 25 mmol/l (22-30); CHLORIDE 104 mmol/l (95-108); CREATININE 0.9 mg/dL (0.7-1.3); GFR > 60 ML/MIN (>=60 (CALC)); GFR FOR AFR.AMER. > 60 ML/MIN (>=60 (CALC)); POTASSIUM 4.9 mmol/l (3.5-5.1); SGOT/AST 36 u/l (19-48); SODIUM 139 mmol/l (137-146); TOTAL PROTEIN 7.2 g/dL (6.3-8.2)
[2018-07-04] MEDS ORDERED: MAGNESIUM296 ML/BTL PO (18:03)
[2018-07-04] MEDS ORDERED: TAMSULOSIN0.4 MG PO (18:03)
[2018-07-04] MEDS ORDERED: BACTRIM DS1 TAB PO (18:03)
[2018-07-04] MEDS ORDERED: MIRALAX3350 N1 PO (18:03)
[2018-07-04 18:09] VITALS: BP 147/80
== END 2018-07-04 18:22 | disposition home or self-care (01) ==
LOC: ED 15:28
PROVIDERS: Family Medicine
DX: N40.1 Benign prostatic hyperplasia with lower urinary tract symptoms (principal); R33.8 Other retention of urine; N39.0 Urinary tract infection, site not specified; B96.89 Other specified bacterial agents as the cause of diseases classified elsewhere; K59.00 Constipation, unspecified; F17.200 Nicotine dependence, unspecified, uncomplicated; F03.90 Unspecified dementia, unspecified severity, without behavioral disturbance, psychotic disturbance, mood disturbance, and anxiety; R10.84 Generalized abdominal pain

== ENCOUNTER 2019-01-28 10:54 | Observation (INO) | payer OTHER ==
[~2019-01-28] VITALS: Ht 172.7 cm; Wt 54.9 kg
[~2019-01-28 10:54] MED LIST changes: +MAGNESIUM296 ML/BTL PO; +MIRALAX3350 N1 PO; +TAMSULOSIN0.4 MG PO
[2019-01-28 11:38] LABS: HEMATOCRIT 41.2 % (39.0-50.0); HEMOGLOBIN 13.9 g/dl (14.0-18.0); IMMATURE GRANULOCYTES 0.3 % (0.0-5.0); MEAN CELL VOLUME 100.7 fL CALC (80.0-100.0); MEAN CORPUSCULAR HGB CONC 33.7 g/L CALC (32.0-36.0); NEUT# 1.43 thou/uL (1.82-7.42); RED BLOOD COUNT 4.09 mill/uL (4.70-6.10); RED CELL DISTRI WIDTH 13.3 % (11.5-15.5)
[2019-01-28 11:58] LABS: ALBUMIN 4.1 g/dL (3.2-5.0); ALKALINE PHOSPHATASE 73 u/l (38-126); ANION GAP 10 (6-22 (CALC)); BILIRUBIN, TOTAL 0.4 mg/dL (0.0-1.4); BUN 10 mg/dL (8-23); BUN/CREATININE RATIO 9 (12-20 (CALC)); CARBON DIOXIDE 28 mmol/l (22-30); CHLORIDE 104 mmol/l (95-108); GFR > 60 ML/MIN (>=60 (CALC)); GFR FOR AFR.AMER. > 60 ML/MIN (>=60 (CALC)); POTASSIUM 4.3 mmol/l (3.5-5.1); SGOT/AST 30 u/l (19-48); SODIUM 138 mmol/l (137-146); TOTAL PROTEIN 7.1 g/dL (6.3-8.2)
[2019-01-28 16:08] VITALS: BP 128/89
[2019-01-28 18:54] VITALS: BP 105/78
[2019-01-28 22:53] LABS: URINE BILIRUBIN - DIPSTICK NEGATIVE (NEGATIVE); URINE BLOOD DIPSTICK NEGATIVE (NEGATIVE); URINE COLOR YELLOW; URINE GLUCOSE - DIPSTICK NEGATIVE (NEGATIVE); URINE KETONE NEGATIVE (NEGATIVE); URINE LEUK ESTERASE NEGATIVE (NEGATIVE); URINE NITRITE - DIPSTICK NEGATIVE (Negative); URINE PH 6.5 (4.5-8.0); URINE PROTEIN - DIPSTICK NEGATIVE (NEG-TRACE); URINE SPECIFIC GRAVITY <=1.005; URINE UROBILINOGEN - DIPSTICK 0.2 E.U./dL (0.2)
[2019-01-28 23:03] LABS: COCAINE POSITIVE (NEGATIVE)
[2019-01-28 23:04] LABS: BARBITURATES NEGATIVE (NEGATIVE); METHADONE NEGATIVE (NEGATIVE); OXCYCODONE NEGATIVE (NEGATIVE); TETRAHYDROCANNABIONOL NEGATIVE (NEGATIVE); TRICYLIC ANTIDEPRESSANTS NEGATIVE (NEGATIVE)
[2019-01-29 00:32] VITALS: BP 101/72
[2019-01-29 05:02] VITALS: BP 102/71
[2019-01-29 05:16] LABS: HEMATOCRIT 40.7 % (39.0-50.0); HEMOGLOBIN 13.5 g/dl (14.0-18.0); MEAN CELL VOLUME 102.3 fL CALC (80.0-100.0); MEAN CORPUSCULAR HGB 33.9 pG CALC (26.0-32.0); MEAN CORPUSCULAR HGB CONC 33.2 g/L CALC (32.0-36.0); NEUT# 1.39 thou/uL (1.82-7.42); RED BLOOD COUNT 3.98 mill/uL (4.70-6.10); RED CELL DISTRI WIDTH 13.2 % (11.5-15.5)
[2019-01-29 05:20] LABS: ALBUMIN 3.8 g/dL (3.2-5.0); ALKALINE PHOSPHATASE 61 u/l (38-126); ANION GAP 7 (6-22 (CALC)); BILIRUBIN, TOTAL 0.2 mg/dL (0.0-1.4); BUN 8 mg/dL (8-23); BUN/CREATININE RATIO 10 (12-20 (CALC)); CALCULATED LDLCHOLESTEROL 69 mg/dL (62-129 (CALC)); CARBON DIOXIDE 30 mmol/l (22-30); CHLORIDE 106 mmol/l (95-108); CHOLESTEROL HDL RATIO 1.8 (<4.4 (CALC)); CREATININE 0.8 mg/dL (0.7-1.3); GFR > 60 ML/MIN (>=60 (CALC)); GFR FOR AFR.AMER. > 60 ML/MIN (>=60 (CALC)); HDL CHOLESTEROL 107 mg/dL (>=40); POTASSIUM 4.5 mmol/l (3.5-5.1); SGOT/AST 28 u/l (19-48); SODIUM 139 mmol/l (137-146); TOTAL CHOLESTEROL 194 mg/dl (0-199); TOTAL PROTEIN 6.6 g/dL (6.3-8.2); TOTAL TRIGLYCERIDES 88 mg/dl (30-149); VLDL CHOLESTROL 18 mg/dl (4-45 (CALC))
[2019-01-29 07:33] VITALS: BP 105/78
[2019-01-29 11:01] VITALS: BP 100/69
== END 2019-01-29 14:33 | disposition home or self-care (01) ==
LOC: ED 10:54 → ED-I 13:49 → ED 14:21 → MS2 14:22
PROVIDERS: Emergency Medicine; ADMIT Internal Medicine; ATTEND Internal Medicine
DX: R07.89 Other chest pain (principal); F14.10 Cocaine abuse, uncomplicated; F10.10 Alcohol abuse, uncomplicated; F03.90 Unspecified dementia, unspecified severity, without behavioral disturbance, psychotic disturbance, mood disturbance, and anxiety; F17.200 Nicotine dependence, unspecified, uncomplicated
CPT/HCPCS: G0378; J1650

== ENCOUNTER 2019-08-10 | Emergency (ER) | payer OTHER ==
[2019-08-10] MEDS ORDERED: GABAPENTIN100 MG PO (11:42)
== END 2019-08-10 13:18 | disposition home or self-care (01) ==
DX: S52.591A Other fractures of lower end of right radius, initial encounter for closed fracture (principal); F03.90 Unspecified dementia, unspecified severity, without behavioral disturbance, psychotic disturbance, mood disturbance, and anxiety; F17.210 Nicotine dependence, cigarettes, uncomplicated; V18.0XXA Pedal cycle driver injured in noncollision transport accident in nontraffic accident, initial encounter; Y93.55 Activity, bike riding; Y92.009 Unspecified place in unspecified non-institutional (private) residence as the place of occurrence of the external cause

== ENCOUNTER 2020-10-16 09:49 | Emergency (ER) | payer MEDICARE, MEDICAID ==
[~2020-10-16] VITALS: Ht 172.7 cm; Wt 50.0 kg
[~2020-10-16 09:49] MED LIST changes: +GABAPENTIN100 MG PO
[2020-10-16] MEDS ORDERED: PREVACID30 M3 PO (11:00)
[2020-10-16] MEDS ORDERED: GAS-1 PO (11:02)
[2020-10-16 11:35] VITALS: BP 124/76
== END 2020-10-16 11:35 | disposition home or self-care (01) ==
LOC: ED 09:49
DX: R10.84 Generalized abdominal pain (principal); F03.90 Unspecified dementia, unspecified severity, without behavioral disturbance, psychotic disturbance, mood disturbance, and anxiety; G40.909 Epilepsy, unspecified, not intractable, without status epilepticus; F17.200 Nicotine dependence, unspecified, uncomplicated

== ENCOUNTER 2021-04-17 09:44 | Emergency (ER) | payer MEDICARE, MEDICAID ==
[~2021-04-17] VITALS: Ht 167.6 cm; Wt 60.0 kg
[~2021-04-17 09:44] MED LIST changes: +GAS-1 PO; +PREVACID30 M3 PO
[2021-04-17 11:47] LABS: HEMATOCRIT 40.2 % (39.0-50.0); HEMOGLOBIN 13.6 g/dl (14.0-18.0); IMMATURE GRANULOCYTES 0.2 % (0.0-5.0); MEAN CELL VOLUME 100.2 fL CALC (80.0-100.0); MEAN CORPUSCULAR HGB 33.9 pG CALC (26.0-32.0); MEAN CORPUSCULAR HGB CONC 33.8 g/dL CAL (32.0-36.0); NEUT# 2.73 thou/uL (1.82-7.42); RED BLOOD COUNT 4.01 mill/uL (4.70-6.10)
[2021-04-17 11:52] LABS: ANION GAP 13 (6-22 (CALC)); BUN 17 mg/dL (8-23); BUN/CREATININE RATIO 15 (12-20 (CALC)); CARBON DIOXIDE 24 mmol/l (22-30); CHLORIDE 106 mmol/l (95-108); CREATININE 1.1 mg/dL (0.7-1.3); GFR > 60 ML/MIN (>=60 (CALC)); GFR FOR AFR.AMER. > 60 ML/MIN (>=60 (CALC)); POTASSIUM 4.2 mmol/l (3.5-5.1); SODIUM 138 mmol/l (137-146)
[2021-04-17] MEDS ORDERED: ZPAK PO (15:11)
[2021-04-17 16:04] VITALS: BP 126/92
== END 2021-04-17 16:06 | disposition home or self-care (01) ==
LOC: ED 09:44
PROVIDERS: Family Medicine
DX: J06.9 Acute upper respiratory infection, unspecified (principal); F03.90 Unspecified dementia, unspecified severity, without behavioral disturbance, psychotic disturbance, mood disturbance, and anxiety; G40.909 Epilepsy, unspecified, not intractable, without status epilepticus; F17.210 Nicotine dependence, cigarettes, uncomplicated; Z20.822 Contact with and (suspected) exposure to COVID-19

== ENCOUNTER 2022-05-30 11:16 | Observation (INO) | payer MEDICARE, MEDICAID ==
[~2022-05-30] VITALS: Ht 167.6 cm; Wt 49.0 kg
[2022-05-30 13:49] LABS: BASO% 0.2 % (0-3); HEMATOCRIT 45.7 % (39.0-50.0); IMMATURE GRANULOCYTES 0.4 % (0.0-5.0); LYMPH% 20.9 % (15-41); MEAN CELL VOLUME 98.7 fL CALC (80.0-100.0); MEAN CORPUSCULAR HGB 34.1 pG CALC (26.0-32.0); MEAN CORPUSCULAR HGB CONC 34.6 g/dL CAL (32.0-36.0); MONO% 9.9 % (2-13); NEUT# 3.67 thou/uL (1.82-7.42); NEUT% 68.6 % (42-76); RED BLOOD COUNT 4.63 mill/uL (4.70-6.10); RED CELL DISTRI WIDTH 12.4 % (11.5-15.5)
[2022-05-30 14:06] LABS: ALBUMIN 4.5 g/dL (3.2-5.0); ALKALINE PHOSPHATASE 71 u/l (38-126); BUN 16 mg/dL (8-23); BUN/CREATININE RATIO 16 (12-20 (CALC)); CHLORIDE 99 mmol/l (95-108); GFR FOR AFR.AMER. > 60 ML/MIN (>=60 (CALC)); GFR OTHER RACES > 60 ML/MIN (>=60 (CALC)); LIPASE 349 u/l (23-300); POTASSIUM 4.8 mmol/l (3.5-5.1); SODIUM 137 mmol/l (137-146)
[2022-05-30 14:16] LABS: ANION GAP 10 (6-22 (CALC)); CARBON DIOXIDE 33 mmol/l (22-30); SGOT/AST 90 u/l (19-48)
[2022-05-30 14:17] LABS: HEMOGLOBIN 15.8 g/dl (14.0-18.0)
[2022-05-30 19:47] LABS: URINE BILIRUBIN - DIPSTICK NEGATIVE (NEGATIVE); URINE BLOOD DIPSTICK NEGATIVE (NEGATIVE); URINE COLOR YELLOW; URINE GLUCOSE - DIPSTICK NEGATIVE (NEGATIVE); URINE KETONE NEGATIVE (NEGATIVE); URINE PROTEIN - DIPSTICK 30 mg/dL (NEG-TRACE); URINE SPECIFIC GRAVITY 1.015; URINE UROBILINOGEN - DIPSTICK 0.2 E.U./dL (0.2)
[2022-05-30 19:57] LABS: URINE LEUK ESTERASE MODERATE (NEGATIVE); URINE NITRITE - DIPSTICK POSITIVE (Negative)
[2022-05-30 20:05] LABS: URINE BACTERIA MODERATE hpf; URINE SQUAMOUS EPITHELIAL CELL FEW EPI/hpf (0-FEW); URINE WBC 20-50 WBC/hpf (0-5)
[2022-05-30 20:30] VITALS: BP 121/78
[2022-05-30 20:45] VITALS: BP 109/80
[2022-05-30 21:00] VITALS: BP 104/78
[2022-05-30 21:15] VITALS: BP 96/68
[2022-05-30 22:18] VITALS: BP 114/73
[2022-05-31 00:10] VITALS: BP 121/68
[2022-05-31 05:31] LABS: BASO% 0.1 % (0-3); IMMATURE GRANULOCYTES 0.2 % (0.0-5.0); LYMPH% 15.6 % (15-41); MEAN CELL VOLUME 99.3 fL CALC (80.0-100.0); MEAN CORPUSCULAR HGB 34.7 pG CALC (26.0-32.0); MONO% 6.9 % (2-13); NEUT# 6.28 thou/uL (1.82-7.42); NEUT% 77.2 % (42-76); RED BLOOD COUNT 4.03 mill/uL (4.70-6.10); RED CELL DISTRI WIDTH 12.5 % (11.5-15.5)
[2022-05-31 05:43] LABS: ALBUMIN 3.7 g/dL (3.2-5.0); ALKALINE PHOSPHATASE 61 u/l (38-126); BUN 10 mg/dL (8-23); BUN/CREATININE RATIO 15 (12-20 (CALC)); CHLORIDE 105 mmol/l (95-108); CREATININE 0.7 mg/dL (0.7-1.3); GFR FOR AFR.AMER. > 60 ML/MIN (>=60 (CALC)); GFR OTHER RACES > 60 ML/MIN (>=60 (CALC)); MAGNESIUM 1.8 mg/dL (1.6-2.3); POTASSIUM 3.9 mmol/l (3.5-5.1); SGOT/AST 60 u/l (19-48); SODIUM 136 mmol/l (137-146); TOTAL PROTEIN 6.6 g/dL (6.3-8.2)
[2022-05-31 05:57] LABS: ANION GAP 9 (6-22 (CALC)); CARBON DIOXIDE 26 mmol/l (22-30)
[2022-05-31 07:14] VITALS: BP 90/60
[2022-05-31 07:29] VITALS: BP 104/69
[2022-05-31 10:57] VITALS: BP 95/65
[2022-05-31 14:51] VITALS: BP 104/69
[2022-05-31 18:55] VITALS: BP 96/67
[2022-06-01 00:26] VITALS: BP 109/77
[2022-06-01 04:13] VITALS: BP 104/71
[2022-06-01 04:38] LABS: BASO% 0.6 % (0-3); EOS% 0.8 % (0-8); HEMATOCRIT 38.1 % (39.0-50.0); HEMOGLOBIN 13.2 g/dl (14.0-18.0); LYMPH% 28.6 % (15-41); MEAN CELL VOLUME 99.7 fL CALC (80.0-100.0); MEAN CORPUSCULAR HGB 34.6 pG CALC (26.0-32.0); MEAN CORPUSCULAR HGB CONC 34.6 g/dL CAL (32.0-36.0); NEUT# 3.15 thou/uL (1.82-7.42); NEUT% 59.6 % (42-76); RED BLOOD COUNT 3.82 mill/uL (4.70-6.10); RED CELL DISTRI WIDTH 12.7 % (11.5-15.5)
[2022-06-01 05:01] LABS: ALBUMIN 3.4 g/dL (3.2-5.0); ALKALINE PHOSPHATASE 55 u/l (38-126); ANION GAP 9 (6-22 (CALC)); BUN 8 mg/dL (8-23); BUN/CREATININE RATIO 12 (12-20 (CALC)); CARBON DIOXIDE 24 mmol/l (22-30); CHLORIDE 109 mmol/l (95-108); CREATININE 0.7 mg/dL (0.7-1.3); GFR FOR AFR.AMER. > 60 ML/MIN (>=60 (CALC)); GFR OTHER RACES > 60 ML/MIN (>=60 (CALC)); POTASSIUM 3.8 mmol/l (3.5-5.1); SGOT/AST 46 u/l (19-48); SODIUM 138 mmol/l (137-146); TOTAL PROTEIN 6.3 g/dL (6.3-8.2)
[2022-06-01 05:40] LABS: IMMATURE GRANULOCYTES 0.4 % (0.0-5.0)
[2022-06-01 06:16] VITALS: BP 109/73
[2022-06-01 10:21] VITALS: BP 103/71
[2022-06-01] MEDS ORDERED: LEVAQUIN750 M1 PO (11:50)
== END 2022-06-01 14:10 | disposition home or self-care (01) ==
LOC: ED 11:16 → ED-I 18:20 → ED 19:34 → MS2 19:35
PROVIDERS: Nurse Practitioner; Nurse Practitioner Family; ADMIT Internal Medicine; ATTEND Internal Medicine
PROC: 3E0234Z Introduction of Serum, Toxoid and Vaccine into Muscle, Percutaneous Approach (ICD-10-PCS; principal; 2022-06-01)
DX: J18.9 Pneumonia, unspecified organism (principal); N39.0 Urinary tract infection, site not specified; F01.50 Vascular dementia, unspecified severity, without behavioral disturbance, psychotic disturbance, mood disturbance, and anxiety; G40.909 Epilepsy, unspecified, not intractable, without status epilepticus; F17.200 Nicotine dependence, unspecified, uncomplicated; B96.20 Unspecified Escherichia coli [E. coli] as the cause of diseases classified elsewhere; Z23 Encounter for immunization; Z20.822 Contact with and (suspected) exposure to COVID-19
CPT/HCPCS: Q9967

== ENCOUNTER 2022-06-14 10:36 | Emergency (ER) | payer MEDICARE, MEDICAID ==
[~2022-06-14] VITALS: Ht 167.6 cm; Wt 54.5 kg
[~2022-06-14 10:36] MED LIST changes: +LEVAQUIN750 M1 PO
[2022-06-14 11:34] VITALS: BP 124/88
[2022-06-14] MEDS ORDERED: AMOX/K CLAV875 M1 PO (12:02)
== END 2022-06-14 13:35 | disposition home or self-care (01) ==
LOC: ED 10:36
DX: S80.871A Other superficial bite, right lower leg, initial encounter (principal); F03.90 Unspecified dementia, unspecified severity, without behavioral disturbance, psychotic disturbance, mood disturbance, and anxiety; G40.909 Epilepsy, unspecified, not intractable, without status epilepticus; F17.200 Nicotine dependence, unspecified, uncomplicated; W54.0XXA Bitten by dog, initial encounter

== ENCOUNTER 2024-07-27 03:15 | Emergency (ER) | payer MEDICARE, MEDICAID ==
[~2024-07-27] VITALS: Ht 167.6 cm; Wt 54.0 kg
[~2024-07-27 03:15] MED LIST changes: +AMOX/K CLAV875 M1 PO
[2024-07-27] MEDS ORDERED: DiphenhydrAMINE HCL 25 MG CPLT PO ONE (03:40)
[2024-07-27] MEDS ORDERED: guaiFENesin-CODEINE 200-20 MG/10 ML UDC PO ONE (03:40)
[2024-07-27 04:50] LABS: BASO% 0.6 % (0-3); EOS% 0.8 % (0-8); HEMATOCRIT 43.9 % (39.0-50.0); HEMOGLOBIN 14.5 g/dl (14.0-18.0); LYMPH% 18.3 % (15-41); MEAN CELL VOLUME 102.1 fL CALC (80.0-100.0); MEAN CORPUSCULAR HGB 33.7 pG CALC (26.0-32.0); MONO% 10.7 % (2-13); NEUT# 4.42 thou/uL (1.82-7.42); NEUT% 69.6 % (42-76); RED BLOOD COUNT 4.3 mill/uL (4.70-6.10); RED CELL DISTRI WIDTH 13.2 % (11.5-15.5)
[2024-07-27 05:30] VITALS: BP 132/89
== END 2024-07-27 05:30 | disposition home or self-care (01) ==
LOC: ED 03:15
PROVIDERS: Family Medicine
DX: J06.9 Acute upper respiratory infection, unspecified (principal); F03.90 Unspecified dementia, unspecified severity, without behavioral disturbance, psychotic disturbance, mood disturbance, and anxiety; G40.909 Epilepsy, unspecified, not intractable, without status epilepticus; F17.200 Nicotine dependence, unspecified, uncomplicated; Z20.822 Contact with and (suspected) exposure to COVID-19